=== PATIENT | female | born 1955 | race Caucasian/White ===

== ENCOUNTER 2018-12-02 10:19 | Day surgery (SDC) | payer OTHER ==
[~2018-12-02] VITALS: Ht 170.2 cm; Wt 108.9 kg
[~2018-12-02 10:19] MED LIST: ATEN25; CRUTCH4 USE; ESTR25VT; HYDACE5 PO; IBUP200; RXMETA800 PO
[2018-12-02] MEDS ORDERED: LISI5 PO (10:58)
--- NOTE | 2018-12-02 11:55 | NUR ---
12/02/18 1155 Keren Hall USED TO IRRIGATE
== END 2018-12-02 12:45 | disposition home or self-care (01) ==
LOC: ORSCSDS 10:19
PROVIDERS: Student in an Organized Health Care Education/Training Program
PROC: 0DBN8ZX Excision of Sigmoid Colon, Via Natural or Artificial Opening Endoscopic, Diagnostic (ICD-10-PCS; principal; 2018-12-02 11:45)
PROC: 0DBH8ZX Excision of Cecum, Via Natural or Artificial Opening Endoscopic, Diagnostic (ICD-10-PCS; principal; 2018-12-02 11:45)
DX: Z12.11 Encounter for screening for malignant neoplasm of colon (principal); D12.0 Benign neoplasm of cecum; K63.5 Polyp of colon; K57.30 Diverticulosis of large intestine without perforation or abscess without bleeding; K64.8 Other hemorrhoids; I10 Essential (primary) hypertension; G47.33 Obstructive sleep apnea (adult) (pediatric); E66.01 Morbid (severe) obesity due to excess calories; Z68.37 Body mass index [BMI] 37.0-37.9, adult; Z79.899 Other long term (current) drug therapy
CPT/HCPCS: 88305; J7120

== ENCOUNTER 2019-03-17 13:37 | Day surgery (SDC) | payer OTHER ==
[~2019-03-17] VITALS: Ht 170.2 cm; Wt 111.2 kg
[~2019-03-17 13:37] MED LIST changes: +LISI5 PO
--- NOTE | 2019-03-17 16:00 | NUR ---
03/17/19 1600 Linda Armstrong LATE ENTRY---PATIENT AND NOTIFIED THAT ANESTHESIA IS DELAYED DUE TO DIFFERENT CASE AND WILL PROCEED WITH HER CASE SOON POSSIBLE. PATIENT VERBALIZED UNDERSTANDING. NO PROBLEMS OR NEEDS AT THIS TIME. CALL LIGHT ON BEDRAIL WITHIN REACH AND BEDRAILS UP
--- NOTE | 2019-03-17 16:39 | NUR ---
03/17/19 1639 Linda Armstrong INJECTOR NEEDLE AND INDIGO CARMINE WAS OPENED PER DR REQUEST BUT THEN HE DECIDED TO TO USE TO BOTH ITEMS WERE WASTED
== END 2019-03-17 17:05 | disposition home or self-care (01) ==
LOC: ORSCSDS 13:37
PROVIDERS: Student in an Organized Health Care Education/Training Program
PROC: 0DBL8ZX Excision of Transverse Colon, Via Natural or Artificial Opening Endoscopic, Diagnostic (ICD-10-PCS; principal; 2019-03-17 15:00)
PROC: 0DBH8ZX Excision of Cecum, Via Natural or Artificial Opening Endoscopic, Diagnostic (ICD-10-PCS; principal; 2019-03-17 15:00)
DX: Z12.11 Encounter for screening for malignant neoplasm of colon (principal); D12.3 Benign neoplasm of transverse colon; D12.0 Benign neoplasm of cecum; K57.30 Diverticulosis of large intestine without perforation or abscess without bleeding; K64.8 Other hemorrhoids; K52.9 Noninfective gastroenteritis and colitis, unspecified; Z86.010 Personal history of colon polyps; I10 Essential (primary) hypertension; E66.01 Morbid (severe) obesity due to excess calories; Z68.39 Body mass index [BMI] 39.0-39.9, adult; Z79.899 Other long term (current) drug therapy
CPT/HCPCS: 88305; J2704; J7120

== ENCOUNTER 2020-08-13 12:14 | Day surgery (SDC) | payer OTHER ==
[~2020-08-13] VITALS: Ht 170.2 cm; Wt 110.6 kg
[~2020-08-13 12:14] MED LIST changes: +ATOR10 PO; +LOSA25 PO; +Voltaren100 GM TOP
--- NOTE | 2020-08-13 12:56 | NUR ---
08/13/20 1256 MICKEY HENSLEY PT TOOK ONE ENEMA
== END 2020-08-13 14:30 | disposition home or self-care (01) ==
LOC: ORSCSDS 12:14
PROVIDERS: Student in an Organized Health Care Education/Training Program
PROC: 0DBL8ZX Excision of Transverse Colon, Via Natural or Artificial Opening Endoscopic, Diagnostic (ICD-10-PCS; principal; 2020-08-13 13:30)
PROC: 0DBK8ZX Excision of Ascending Colon, Via Natural or Artificial Opening Endoscopic, Diagnostic (ICD-10-PCS; principal; 2020-08-13 13:30)
DX: Z86.010 Personal history of colon polyps (principal); D12.3 Benign neoplasm of transverse colon; D12.2 Benign neoplasm of ascending colon; K57.30 Diverticulosis of large intestine without perforation or abscess without bleeding; K64.8 Other hemorrhoids; I10 Essential (primary) hypertension; G47.33 Obstructive sleep apnea (adult) (pediatric); E66.01 Morbid (severe) obesity due to excess calories; Z68.38 Body mass index [BMI] 38.0-38.9, adult
CPT/HCPCS: 82947; 88305; J2704; J7120

== ENCOUNTER → 2021-12-08 | Outpatient (CLI) | payer MEDICARE, OTHER | END | disposition home or self-care (01) | LOC: LAB 17:07 → LAB SHORT 17:07 | DX: R30.9 Painful micturition, unspecified (principal) | CPT/HCPCS: 87086 ==

== ENCOUNTER 2024-08-17 08:15 | Day surgery (SDC) | payer MEDICARE, OTHER ==
[~2024-08-17] VITALS: Ht 168.5 cm; Wt 113.3 kg
[~2024-08-17 08:15] MED LIST changes: +CLIMARA1 EACH TOP; +ESTRADIOL1 EAC2; +Lovastatin20 MG PO; +METF500 PO; +MODA200 PO; +NS 500 ML IV SCH; +OMEP20ER PO
[2024-08-17] MEDS ORDERED: IBUP600 PO (08:58)
[2024-08-17 09:08] VITALS: BP 169/76
--- NOTE | 2024-08-17 09:28 | NUR ---
History, Chart, Medications and Allergies reviewed before start of procedure. Patient up to Ambulate independently. Gait steady. Pre-Op teaching done. Pt verbalizes understanding. Patient confirms NPO status and agrees with scheduled surgery. Patient states colon prep results blanco & cloudy, unable to finish second bottle of colon prep. MD notified. Patient States Post-Procedure ride home has been arranged.
[2024-08-17] MEDS ORDERED: Midazolam HCl 1MG / ML 2ML Vial ONE (09:48)
[2024-08-17] MEDS ORDERED: propofoL 40 ML IV ONE (09:48)
[2024-08-17] MEDS ORDERED: FentaNYL Citrate 50 MCG/ML 2 ML Injection ONE (09:48)
--- NOTE | 2024-08-17 09:54 | NUR ---
08/17/24 0954 Gee Rae MONITOR INTACT WITH CONTINUOUS PULSE OXIMETRY, CONTINUOUS END TITAL CO2, AND INTERMITTENT BLOOD PRESSURE.AND EKG ANESTHESIA PER DR. VIDALES
[2024-08-17 10:30] VITALS: BP 135/73
[2024-08-17 10:47] VITALS: BP 148/83
--- NOTE | 2024-08-17 10:53 | NUR ---
Discharge instructions reviewed with patient. Patient verbalizes understanding. Copy given to patient to take home.
== END 2024-08-17 10:59 | disposition home or self-care (01) ==
LOC: ORSCMMR 08:15 → ORD 10:30 → ORSCMMR 10:30
PROVIDERS: Internal Medicine Gastroenterology
PROC: 0DBM8ZX Excision of Descending Colon, Via Natural or Artificial Opening Endoscopic, Diagnostic (ICD-10-PCS; principal; 2024-08-17 10:30)
PROC: 0DBH8ZX Excision of Cecum, Via Natural or Artificial Opening Endoscopic, Diagnostic (ICD-10-PCS; principal; 2024-08-17 10:30)
PROC: 0DBN8ZX Excision of Sigmoid Colon, Via Natural or Artificial Opening Endoscopic, Diagnostic (ICD-10-PCS; principal; 2024-08-17 10:30)
PROC: 0DBK8ZX Excision of Ascending Colon, Via Natural or Artificial Opening Endoscopic, Diagnostic (ICD-10-PCS; principal; 2024-08-17 10:30)
DX: Z12.11 Encounter for screening for malignant neoplasm of colon (principal); Z86.0101 Personal history of adenomatous and serrated colon polyps; K63.5 Polyp of colon; K57.30 Diverticulosis of large intestine without perforation or abscess without bleeding; G47.33 Obstructive sleep apnea (adult) (pediatric); E11.9 Type 2 diabetes mellitus without complications; I10 Essential (primary) hypertension; K21.9 Gastro-esophageal reflux disease without esophagitis; E78.00 Pure hypercholesterolemia, unspecified; Z79.84 Long term (current) use of oral hypoglycemic drugs; Z79.899 Other long term (current) drug therapy; E66.01 Morbid (severe) obesity due to excess calories; Z68.39 Body mass index [BMI] 39.0-39.9, adult
CPT/HCPCS: 82947; 88305; J2250; J2704; J3010; J7040

== ENCOUNTER → 2025-03-02 | Outpatient (CLI) | payer MEDICARE, OTHER ==
[~2025-03-02] MED LIST changes: +IBUP600 PO; -NS 500 ML IV SCH
[2025-03-02 22:30] LABS: Microalb/Creat Ratio UR, Rand 11.571 mg/g (0.000-30.000); Microalbumin, Random Urine 16.2 mg/L (0.000-20.000)
== END ==
LOC: LAB SHORT 15:15 → LAB 15:15
PROVIDERS: Internal Medicine
DX: E11.8 Type 2 diabetes mellitus with unspecified complications (principal)
CPT/HCPCS: 82043; 82570